=== PATIENT | male | born 1985 | race Caucasian/White ===

== ENCOUNTER 2016-08-07 08:15 | Emergency (ER) | payer SELFPAY ==
[2016-08-07 08:22] VITALS: BP 139/89
[2016-08-07] MEDS ORDERED: Ibuprofen TAB* 400 MG PO ONE (08:34)
--- NOTE | 2016-08-07 08:47 | ED ---
Influenza-Like Illness - HPI Summary HPI Summary: Patient presents with a sore throat for five days that began with a fever that has now resolved, but his throat continues to hurt. He has a history of tonsilar abscesses, so he worries this might be happening again. He has pain with swallowing but no difficulty breathing. He has used Chloraseptic and ibuprofen with mild relief. He denies runny nose, AQUINO, cough or congestion. No N/ V/D. - History of Current Complaint Chief Complaint: EDGeneral Time Seen by Provider: 08/07/16 08:24 Hx Obtained From: Patient Onset/Duration: Gradual Onset Severity: Severe Associated Signs & Symptoms: Sore Throat Related Hx: Possible Flu/Infectious Exposure - Allergy/Home Medications Allergies/Adverse Reactions: Allergies Allergy/AdvReac Type Severity Reaction Status Date / Time No Known Allergies Allergy Verified 11/21/15 13:38 PMH/Surg Hx/FS Hx/Imm Hx Previously Healthy: Yes - Surgical History Surgery Procedure, Year, and Place: THROAT ABSCESS REMOVED Infectious Disease History: No Infectious Disease History: Denies: Traveled Outside the [place] in Last 30 Days - Family History Known Family History: Positive: Cardiac Disease - [place]: Father, grandfather, grandmother - Social History Occupation: Employed Full-time Lives: With Family Alcohol Use: Weekly Hx Substance Use: Yes Substance Use Type: Reports: Marijuana Substance Use Comment - Amount & Last Used: occasional Hx Tobacco Use: Yes Smoking Status (MU): Heavy Every Day Tobacco Smoker Amount Used/How Often: 1/2 ppd Cessation Counseling: Patient Advised to Stop Review of Systems Negative: Fever, Chills Positive: Sore Throat. Negative: Ear Ache, Nasal Discharge Negative: Cough Negative: Myalgia Negative: Headache All Other Systems Reviewed And Are Negative: Yes Physical Exam Triage Information Reviewed: Yes Vital Signs On Initial Exam: Initial Vitals Temp Pulse Resp BP Pulse Ox 98.9 F 95 20 139/89 98 08/07/16 08:20 08/07/16 08:20 08/07/16 08:20 08/07/16 08:20 08/07/16 08:20 Vital Signs Reviewed: Yes Appearance: Positive: Well-Appearing, Pain Distress, Obese Skin: Positive: Warm, Skin Color Reflects Adequate Perfusion, Dry, Soft Head/Face: Positive: Normal Head/Face Inspection Eyes: Positive: EOMI, ODALIS, Conjunctiva Clear ENT: Positive: Pharyngeal erythema, TMs normal, Tonsillar swelling. Negative: Nasal congestion, Tonsillar exudate Neck: Positive: Supple, Tenderness @ - bilateral cervical, Enlarged Nodes @ - bilateral cervical Respiratory/Lung Sounds: Positive: Clear to Auscultation, Breath Sounds Present Cardiovascular: Positive: RRR Neurological: Positive: Alert, Oriented to Person Place, Time, Normal Gait Psychiatric: Positive: Affect/Mood Appropriate AVPU Assessment: Alert Diagnostics - Vital Signs Vital Signs Temp Pulse Resp BP Pulse Ox 08/07/16 08:20 98.9 F 95 20 139/89 98 - Laboratory Lab Statement: Any lab studies that have been ordered have been reviewed, and results considered in the medical decision making process. Flu Symptom Course/Dx - Diagnoses Differential Diagnosis/HQI/PQRI: Positive: Bronchitis, Influenza, Pneumonia, Upper Respiratory Infection Provider Diagnoses: Strep throat Discharge - Discharge Plan Condition: Stable Disposition: HOME Prescriptions: Magic Mouth Was-JESSE/MAAL/LIDO* 5 ml SWISH SPIT QID #120 ml Penicillin VK TAB* [Penicillin VK 250 mg Tab*] 500 mg PO TID #59 tab Patient Education Materials: Strep Throat (ED) Referrals: [facility] [place] [facility]IAN REFERRAL [Outside] Additional Instructions: Please call the number provided to establish care with a regular provider for follow-up care. Return to the emergency department if symptoms worsen.
[2016-08-07] MEDS ORDERED: Penicillin VK TAB* 250 MG PO ONE (09:58)
== END 2016-08-07 10:15 | disposition home or self-care (01) ==
LOC: ED 08:15
DX: J02.0 Streptococcal pharyngitis (principal); J02.9 Acute pharyngitis, unspecified; R50.9 Fever, unspecified; F17.210 Nicotine dependence, cigarettes, uncomplicated
CPT/HCPCS: 87651; 99282; A9270-GY

== ENCOUNTER 2017-10-06 08:31 | Emergency (ER) | payer SELFPAY ==
[2017-10-06 08:43] VITALS: BP 147/102
--- NOTE | 2017-10-06 08:59 | UC ---
Throat Pain/Nasal Eric HPI - HPI Summary HPI Summary: 32 yo male with sore throat x 1 day both sons have strep no n/v/d - History of Current Complaint Chief Complaint: UCGeneralIllness Stated Complaint: FEVER SORE THROAT Time Seen by Provider: 10/06/17 08:39 Hx Obtained From: Patient Onset/Duration: Gradual Onset Severity: Moderate Pain Intensity: 7 Pain Scale Used: 0-10 Numeric - Epiglottits Risk Factors Epiglottis Risk Factors: Negative - Allergies/Home Medications Allergies/Adverse Reactions: Allergies Allergy/AdvReac Type Severity Reaction Status Date / Time No Known Allergies Allergy Verified 10/06/17 08:43 Home Medications: Home Medications Ibuprofen 2 tab PO BID PRN 10/06/17 [History Confirmed 10/06/17] PMH/Surg Hx/FS Hx/Imm Hx Previously Healthy: Yes - Surgical History Surgical History: Yes Surgery Procedure, Year, and Place: THROAT ABSCESS REMOVED - Family History Known Family History: Positive: Cardiac Disease - [place]: Father, grandfather, grandmother, Hypertension - Social History Alcohol Use: Weekly Substance Use Type: None Substance Use Comment - Amount & Last Used: occasional Smoking Status (MU): Heavy Every Day Tobacco Smoker Amount Used/How Often: 1/2 ppd Household Exposure Type: Cigarettes Cessation Counseling: Patient Advised to Stop - Immunization History Most Recent Tetanus Shot: unknown Review of Systems Constitutional: Negative Skin: Negative Eyes: Negative ENT: Sore Throat Respiratory: Negative Cardiovascular: Negative Gastrointestinal: Negative Genitourinary: Negative Motor: Negative Neurovascular: Negative Musculoskeletal: Negative Neurological: Negative Psychological: Negative Is Patient Immunocompromised?: No All Other Systems Reviewed And Are Negative: Yes Physical Exam Triage Information Reviewed: Yes Appearance: Well-Appearing, No Pain Distress, Well-Nourished Vital Signs: Initial Vital Signs Temp 97.6 F 10/06/17 08:40 Pulse 86 10/06/17 08:40 Resp 20 10/06/17 08:40 BP 147/102 10/06/17 08:40 Pulse Ox 98 10/06/17 08:40 Vital Signs Reviewed: Yes ENT: Positive: Hearing grossly normal, Tonsillar swelling, Tonsillar exudate, Uvula midline. Negative: Nasal congestion, Nasal drainage Neck: Positive: Supple, Nontender, Enlarged Nodes @ Respiratory: Positive: Lungs clear, Normal breath sounds, No respiratory distress, No accessory muscle use Cardiovascular: Positive: RRR, No Murmur Musculoskeletal: Positive: ROM Intact, No Edema Neurological: Positive: Alert Psychological Exam: Normal Skin Exam: Normal Diagnostics - Laboratory Diagnostic Studies Completed/Ordered: strep (+) Throat Pain/Nasal Course/Dx - Differential Dx/Diagnosis Provider Diagnoses: strep throat. elveted BP without dx of HTN. tobacco use/ abuse Discharge - Sign-Out/Discharge Documenting (check all that apply): Discharge - Discharge Plan Condition: Stable Disposition: HOME Patient Education Materials: Strep Throat (ED) Forms: *Work Release Referrals: [facility] [place] [facility] REFERR[facility] [Outside] - As Soon As Possible Additional Instructions: recheck in 3-4 days if not better you need to find a primary care provider you BP here was high and needs following you need to stop smoking you may need a sleep study to check for obstructive sleep apnea - Billing Disposition and Condition Condition: STABLE Disposition: HOME
== END 2017-10-06 09:13 | disposition home or self-care (01) ==
LOC: UCEAST 08:31
DX: J02.0 Streptococcal pharyngitis (principal); R03.0 Elevated blood-pressure reading, without diagnosis of hypertension; F17.210 Nicotine dependence, cigarettes, uncomplicated
CPT/HCPCS: 87651; 99212; G0463

== ENCOUNTER 2018-08-24 10:31 | Emergency (ER) | payer OTHER ==
[2018-08-24 11:17] LABS: Influenza A Molecular NEGATIVE (Negative); Influenza B Molecular NEGATIVE (Negative)
[2018-08-24] MEDS ORDERED: Acetaminophen TAB* 325 MG PO ONE (13:35)
--- NOTE | 2018-08-24 13:37 | ED ---
Complex/Multi-Sys Presentation - HPI Summary HPI Summary: Patient is a 33 y/o M presenting to ED with complaints of fever and cough onsetting last night. Sx have been constant throughout the night and have progressively worsened. Patient also endorses abdominal pain and N/V/D as well but denies dysuria. Abdominal pain is described as cramping. He reports experiencing SOB with sore throat and congestion but denies chest pain and rhinorrhea. He notes has a slight cough but otherwise no sick contacts. Patient took Robitussin at 0830 this morning. On triage, pain is rated 7/10, nothing is noted to aggravate/alleviate Sx. Home medications and allergies are reviewed. - History Of Current Complaint Chief Complaint: EDFluSymptoms Time Seen by Provider: 08/24/18 13:14 Hx Obtained From: Patient Onset/Duration: Lasting Days - onset last night, Still Present, Worse Since Timing: Constant, Days - onset last night Severity Currently: Severe - 7/10 Location: Pain At: - abdominal pain Aggravating Factor(s): nothing Alleviating Factor(s): nothing Associated Signs And Symptoms: Positive: SOB, Cough, Nausea, Vomiting, Diarrhea , Abdominal Pain, Fever, Other - POSITIVE - CONGESTION; NEGATIVE - RHINORRHEA. Negative: Chest Pain, Dysuria - Allergies/Home Medications Allergies/Adverse Reactions: Allergies Allergy/AdvReac Type Severity Reaction Status Date / Time No Known Allergies Allergy Verified 10/06/17 08:43 Home Medications: Home Medications Ibuprofen TAB* [Advil TAB*] 400 mg PO BID PRN 08/24/18 [History Confirmed ] PMH/Surg Hx/FS Hx/Imm Hx Sensory History: Denies: Hx Legally Blind, Hx Deafness Opthamlomology History: Denies: Hx Legally Blind EENT History: Denies: Hx Deafness - Surgical History Surgery Procedure, Year, and Place: THROAT ABSCESS REMOVED Infectious Disease History: No Infectious Disease History: Denies: Traveled Outside the [place] in Last 30 Days - Family History Known Family History: Positive: Cardiac Disease - [place]: Father, grandfather, grandmother, Hypertension - Social History Alcohol Use: Weekly Alcohol Amount: 20-30beers Hx Substance Use: Yes Substance Use Type: Reports: Marijuana Substance Use Comment - Amount & Last Used: occasional Hx Tobacco Use: Yes Smoking Status (MU): Heavy Every Day Tobacco Smoker Amount Used/How Often: 1/2 ppd Review of Systems Positive: Fever ENT: Other - POSITIVE - CONGESTION Positive: Sore Throat. Negative: Nasal Discharge Negative: Chest Pain Positive: Shortness Of Breath, Cough Positive: Abdominal Pain, Vomiting, Diarrhea, Nausea Negative: dysuria All Other Systems Reviewed And Are Negative: Yes Physical Exam - Summary Physical Exam Summary: Constitutional: Well-developed, Well-nourished, Alert. Appears uncomfortable. Skin: Warm, Dry HENT: Normocephalic; Atraumatic Eyes: Conjunctiva normal Neck: Musculoskeletal ROM normal neck. (-) JVD, (-) Stridor, (-) Tracheal deviation Cardio: tachycardic, rate normal, Heart sounds normal; Intact distal pulses; The pedal pulses are 2+ and symmetric. Radial pulses are 2+ and symmetric. (-) Murmur Pulmonary/Chest wall: Effort normal. (-) Respiratory distress, (-) Wheezes, (-) Rales Abd: Soft, (-) tenderness, (-) Distension, (-) Guarding, (-) Rebound Musculoskeletal: (-) Edema Lymph: (-) Cervical adenopathy Neuro: Alert, Oriented x3 Psych: Mood and affect Normal Triage Information Reviewed: Yes Vital Signs On Initial Exam: Initial Vitals Temp Pulse Resp BP Pulse Ox 97.2 F 122 24 137/90 95 08/24/18 10:43 08/24/18 10:43 08/24/18 10:43 08/24/18 10:43 08/24/18 10:43 Vital Signs Reviewed: Yes Diagnostics - Vital Signs Vital Signs Temp Pulse Resp BP Pulse Ox 08/24/18 13:15 19 08/24/18 13:10 113 127/108 96 08/24/18 12:37 100.8 F 123 22 148/82 95 08/24/18 10:43 97.2 F 122 24 137/90 95 - Laboratory Lab Results: Lab Results 08/24/18 08/24/18 Range/Units 11:05 11:05 Influenza A (Rapid) Negative (Negative) Influenza B (Rapid) Negative (Negative) Group A Strep Rapid Negative (Negative) Result Diagrams: 08/24/18 14:17 08/24/18 14:17 Lab Statement: Any lab studies that have been ordered have been reviewed, and results considered in the medical decision making process. - Radiology CXR Radiology Interpretation Completed By: Radiologist Summary of Radiographic Findings: IMPRESSION: NO ACTIVE CARDIOPULMONARY DISEASE. THIS REPORT WAS REVIEWED BY DR. CARLSON. - EKG 1350 Cardiac Rate: Tachycardia - rate of 111 BPM EKG Rhythm: Sinus Tachycardia Summary of EKG Findings: EKG showed sinus tachycardia with rate of 111 BPM, normal UT, normal QRS, normal QTc, incomplete RBBB, normal ST, normal T wave, non-specific EKG. Re-Evaluation - Re-Evaluation First Eval Re-Evaluation Time: 18:02 Change: Improved Comment: Patient reports that he is feeling better. He will be discharged to home. He is agreeable with this. Complex Multi-Symp Course/Dx Course Of Treatment: Patient is a 33 y/o M presenting to ED with complaints of fever and cough onsetting last night. Sx have been constant throughout the night and have progressively worsened. Patient also endorses abdominal pain and N/V/D as well but denies dysuria. Abdominal pain is described as cramping. He reports experiencing SOB with sore throat and congestion but denies chest pain and rhinorrhea. He notes has a slight cough but otherwise no sick contacts. Patient took Robitussin at 0830 this morning. On physical exam, patient is noted to appear uncomfortable, tachycardia is noted. EKG showed sinus tachycardia with rate of 111 BPM, normal UT, normal QRS, normal QTc, incomplete RBBB, normal ST, normal T wave, non-specific EKG. CXR IMPRESSION: NO ACTIVE CARDIOPULMONARY DISEASE. Influenza A, B, group A strep rapid is negative. UA showed trace ketones, 1+ blood, present hyaline casts. Labs showed WBC 6.2, Hgb 13.9, Hct 39, absolute lymphs 0.5, INR 1.07, sodium 130, carbon dioxide 21, lactic acid 0.7, second lactic acid 0.5, calcium 8.1, AST 75, ALT 121, trop 0, total protein 6.3. During ED course, patient received fluids, motrin 600 mg PO ONCE, flexeril 10 mg PO ONCE, and Tylenol 650 mg PO ONCE. Patient reports that he is feeling better. He will be discharged to home and follow up with PCP. He is agreeable with this. - Diagnoses Provider Diagnoses: Viral syndrome Discharge - Sign-Out/Discharge Documenting (check all that apply): Patient Departure - discharge Patient Received Moderate/Deep Sedation with Procedure: No - Discharge Plan Condition: Good Disposition: HOME Patient Education Materials: Viral Syndrome (ED) Print Language: POLISH Forms: *Work Release [facility]errals: [facility] [Outside] Additional Instructions: Return to ED for any new or worsening symptoms. - Billing Disposition and Condition Condition: GOOD Disposition: Home - Attestation Statements Document Initiated by Scribe: Yes Documenting Scribe: JAIME DURHAM Provider For Whom Hannah is Documenting (Include Credential): EMELIA BECK MD Scribe Attestation: I, JAIME DURHAM, scribed for EMELIA CARLSON MD on 08/24/18 at 2200. Scribe Documentation Reviewed: Yes Provider Attestation: The documentation as recorded by the scribeJAIME accurately reflects the service I personally performed and the decisions made by me, EMELIA CARLSON MD Status of Scribe Document: Viewed
[2018-08-24] MEDS ORDERED: NS 0.9% 1000 ML** 1,000 ML IV.FLUID IV ONE (13:41)
[2018-08-24 14:30] LABS: ABS Basophils 0 10^3/ul (0-0.2); ABS Eosinophils 0 10^3/ul (0-0.6); ABS Lymphocytes 0.5 10^3/ul (1.0-4.8); ABS Monocytes 0.8 10^3/ul (0-0.8); ABS Neutrophils 4.8 10^3/ul (1.5-7.7); ABS Nucleated RBC 0 10^3/ul; Eosinophil % 0.2 %; Hematocrit 39 % (42-52); Hemoglobin 13.9 g/dl (14.0-18.0); Lymphocyte % 8.3 %; Mean Corpuscular HGB Conc 35 g/dl (31-36); Mean Corpuscular Hemoglobin 31 pg (27-31); Mean Corpuscular Volume 88 fL (80-94); Mean Platelet Volume 8.3 fL (7.4-10.4); Nucleated Red Blood Cells % 0.1; Platelet Count 177 10^3/ul (150-450); Red Blood Count 4.47 10^6/ul (4.00-5.40); Red Cell Distribution Width 13 % (10.5-15); White Blood Count 6.2 10^3/ul (3.5-10.8)
[2018-08-24] MEDS ORDERED: Cyclobenzaprine TAB* 10 MG PO ONE (14:32)
[2018-08-24 14:39] LABS: Activated Partial Thrombo Time 30.7 seconds (26.0-36.3); INR 1.07 (0.77-1.02)
[2018-08-24 14:48] LABS: Urine Appearance Cloudy; Urine Bacteria Absent (Absent); Urine Bilirubin Negative (Negative); Urine Blood 1+ (Negative); Urine Color Yellow; Urine Glucose Negative (Negative); Urine Ketones Trace (Negative); Urine Nitrite Negative (Negative); Urine Protein Negative (Negative); Urine Red Blood Cell Trace(0-2/hpf) (Absent); Urine Specific Gravity 1.021 (1.010-1.030); Urine Urobilinogen Negative (Negative); Urine White Blood Cell Trace(0-5/hpf) (Absent)
[2018-08-24 14:49] LABS: Albumin 3.9 g/dL (3.2-5.2); Albumin/Globulin Ratio 1.6 (1-3); BUN/Creatinine Ratio 11.9 (8-20); Calcium 8.1 mg/dL (8.6-10.3); EGFR African American 103.6 (>60); EGFR Non-African American 85.6 (>60); Globulin 2.4 g/dL (2-4); Potassium 3.8 mmol/L (3.5-5.0); Total Bilirubin 0.4 mg/dL (0.2-1.0); Total Protein 6.3 g/dL (6.4-8.9)
[2018-08-24] MEDS ORDERED: Ibuprofen TAB* 600 MG PO ONE (17:27)
[2018-08-24 18:35] VITALS: BP 125/71
== END 2018-08-24 18:33 | disposition home or self-care (01) ==
LOC: ED 10:31
DX: B34.9 Viral infection, unspecified (principal); R50.9 Fever, unspecified; R11.2 Nausea with vomiting, unspecified; R19.7 Diarrhea, unspecified; R10.9 Unspecified abdominal pain; J02.9 Acute pharyngitis, unspecified; F17.210 Nicotine dependence, cigarettes, uncomplicated
CPT/HCPCS: 36415; 71045; 80053; 81003; 81015; 83605; 84484; 85025; 85610; 85730; 87040; 87086; 87651; 93005; 96360; 99283; A9270-GY

== ENCOUNTER 2018-08-28 13:46 | Emergency (ER) | payer OTHER ==
[2018-08-28] MEDS ORDERED: Al Hydrox/Mg Hydrox/Simet LIQ* 30 ML UDC PO ONE (14:02)
[2018-08-28] MEDS ORDERED: Ondansetron ODT TAB* 4 MG PO ONE (14:02)
[2018-08-28] MEDS ORDERED: Ketorolac INJ* 30 MG/ML 1 ML VIAL IV PUSH ONE (14:02)
[2018-08-28] MEDS ORDERED: NS 0.9% 1000 ML** 1,000 ML IV ONE (14:02)
--- NOTE | 2018-08-28 14:08 | ED ---
Abdominal Pain/Male - HPI Summary HPI Summary: Patient is a 33-year-old male with a history of intermittent abdominal cramping over 2 years presenting to the ED for the second time in 4 days with severe back pain to the mid scapula, RUQ pain which then radiated to the LLQ. He states the pain was 10/10, and he became extremely diaphoretic. He was seen in the ED 2 days ago for his cough and fever and was diagnosed with viral syndrome. He returns today with the worst abdominal cramping of his life patient. He denies any nausea, vomiting, diarrhea, constipation. Last bowel movement yesterday morning. He has not eaten anything today. He denies a history of abdominal surgeries. EMS was called. EMS states on arrival he was extremely diaphoretic and short of breath. They placed him on a nonrebreather mask. He was complaining of severe mid scapular pain which was nonradiating. He was also complaining about RUQ pain at that time. - History of Current Complaint Stated Complaint: CRAMPING PER EMS Time Seen by Provider: 08/28/18 13:53 Hx Obtained From: Patient Onset/Duration: Sudden Onset Timing: Constant Severity Initially: Severe Severity Currently: None Pain Scale Used: 0-10 Numeric Location: Diffuse Radiates: No Character: Sharp, Cramping Aggravating Factor(s): Nothing Alleviating Factor(s): Nothing Associated Signs And Symptoms: Positive: Negative - Risk Factors Testicular Torsion: Negative Cardiac Risk Factors: Negative - Allergies/Home Medications Allergies/Adverse Reactions: Allergies Allergy/AdvReac Type Severity Reaction Status Date / Time No Known Allergies Allergy Verified 10/06/17 08:43 PMH/Surg Hx/FS Hx/Imm Hx Previously Healthy: Yes Sensory History: Denies: Hx Legally Blind, Hx Deafness Opthamlomology History: Denies: Hx Legally Blind - Surgical History Surgery Procedure, Year, and Place: THROAT ABSCESS REMOVED - Immunization History Hx Pertussis Vaccination: No Immunizations Up to Date: Yes - Family History Known Family History: Positive: Cardiac Disease - [place]: Father, grandfather, grandmother, Hypertension - Social History Occupation: Employed Full-time Lives: With Family Alcohol Use: Weekly Alcohol Amount: 20-30beers Hx Substance Use: Yes Substance Use Type: Reports: Marijuana Substance Use Comment - Amount & Last Used: occasional Hx Tobacco Use: Yes Smoking Status (MU): Heavy Every Day Tobacco Smoker Amount Used/How Often: 1/2 ppd Review of Systems Constitutional: Negative Negative: Fever, Chills, Fatigue, Skin Diaphoresis Negative: Palpitations, Chest Pain Positive: Shortness Of Breath. Negative: Cough Positive: Abdominal Pain. Negative: Vomiting, Diarrhea, Nausea Genitourinary: Negative Positive: no symptoms reported, see HPI Negative: Arthralgia, Myalgia Skin: Negative All Other Systems Reviewed And Are Negative: Yes Physical Exam Triage Information Reviewed: Yes Vital Signs Reviewed: Yes Appearance: Positive: Well-Appearing, Well-Nourished Skin: Positive: Skin Color Reflects Adequate Perfusion Head/Face: Positive: Normal Head/Face Inspection Eyes: Positive: EOMI, Conjunctiva Clear Neck: Positive: Supple, Nontender, No Lymphadenopathy Respiratory/Lung Sounds: Positive: Clear to Auscultation, Breath Sounds Present Cardiovascular: Positive: RRR, Pulses are Symmetrical in both Upper and Lower Extremities. Negative: Tachycardia, Leg Edema Left, Leg Edema Right Abdomen Description: Positive: Nontender, No Organomegaly, Soft. Negative: CVA Tenderness (R), CVA Tenderness (L), Distended, Guarding, McBurney's Point Tenderness, Splenomegaly Bowel Sounds: Positive: Present Musculoskeletal: Positive: Normal, Strength/ROM Intact Neurological: Positive: Speech Normal Psychiatric: Positive: Normal, Affect/Mood Appropriate AVPU Assessment: Alert Diagnostics - Laboratory Result Diagrams: 08/28/18 14:09 08/28/18 14:09 Lab Statement: Any lab studies that have been ordered have been reviewed, and results considered in the medical decision making process. Abdominal Pain Male Course/Dx - Course Course Of Treatment: During this course of treatment, the patients evaluated for intermittent abdominal pain which was previously to the RUQ and radiated to the LLQ. On arrival, patient is diaphoretic, however vital signs are stable. He is on a nonrebreather and this was taken off. He remains at 99% on room air. Heart rate of 84, BP 115/83 and respirations are 17. Patient states his abdominal symptoms have resolved. He denies any CP, however endorses SOB only with abdominal pain. He states he has been dealing with this for months, however this was the worst symptom. He does not have anything to eat prior to arrival. Labs obtained which show a elevated CRP, however a normal white blood cell count. His AST and ALT are slightly elevated, but total bilirubin is WNL. Gallbladder ultrasound obtained which is negative for any acute findings. Chest x-ray obtained which shows no acute active cardiopulmonary disease. Troponin 0.00. EKG shows normal sinus rhythm. Patient is stable and denies any symptoms at this time. Due to his intermittent abdominal symptoms over the course of several months, he will be discharged with a follow-up to a GI specialist. He offers no complaints at this time. - Diagnoses Differential Diagnosis/HQI/PQRI: Appendicitis, Constipation, Ureteral Stone, Urinary Tract Infection Provider Diagnoses: Abdominal pain Discharge - Sign-Out/Discharge Documenting (check all that apply): Patient Departure Patient Received Moderate/Deep Sedation with Procedure: No - Discharge Plan Condition: Stable Disposition: HOME Patient Education Materials: Acute Abdominal Pain (ED) Referrals: Polo Smith MD [Medical Doctor] - No Primary Care Phys,NOPCP [Primary Care Provider] - Additional Instructions: Please follow-up with Dr. Smith's office Maalox over the counter for breakthrough pain - Billing Disposition and Condition Condition: STABLE Disposition: Home
[2018-08-28 14:26] LABS: ABS Basophils 0 10^3/ul (0-0.2); ABS Eosinophils 0 10^3/ul (0-0.6); ABS Lymphocytes 1.2 10^3/ul (1.0-4.8); ABS Monocytes 0.6 10^3/ul (0-0.8); ABS Neutrophils 3.7 10^3/ul (1.5-7.7); ABS Nucleated RBC 0 10^3/ul; Eosinophil % 0.6 %; Hematocrit 43 % (36-46); Hemoglobin 15.5 g/dL (14.0-18.0); Lymphocyte % 21.7 %; Mean Corpuscular HGB Conc 36 g/dL (31-36); Mean Corpuscular Hemoglobin 31 pg (27-31); Mean Corpuscular Volume 86 fL (80-94); Mean Platelet Volume 8.4 fL (7.4-10.4); Nucleated Red Blood Cells % 0.4; Platelet Count 185 10^3/uL (150-450); Red Blood Count 5.06 10^6 /uL (4.18-5.48); Red Cell Distribution Width 13 % (10.5-15); White Blood Count 5.6 10^3/uL (3.5-10.8)
[2018-08-28 14:42] LABS: Albumin/Globulin Ratio 1.3 (1-3); BUN/Creatinine Ratio 12.4 (8-20); C Reactive Protein 50.97 mg/L (<8.01); Calcium 8.6 mg/dL (8.6-10.3); EGFR African American 119.9 (>60); EGFR Non-African American 99.1 (>60); Potassium 3.6 mmol/L (3.5-5.0); Total Bilirubin 0.5 mg/dL (0.2-1.0)
[2018-08-28 15:34] VITALS: BP 121/71
== END 2018-08-28 15:34 | disposition home or self-care (01) ==
LOC: ED 13:46
DX: R10.11 Right upper quadrant pain (principal); R10.32 Left lower quadrant pain; R06.02 Shortness of breath; R61 Generalized hyperhidrosis; K76.0 Fatty (change of) liver, not elsewhere classified; Z82.49 Family history of ischemic heart disease and other diseases of the circulatory system; F17.210 Nicotine dependence, cigarettes, uncomplicated
CPT/HCPCS: 36415; 71046; 76705; 80053; 83605; 83690; 83735; 84484; 85025; 86140; 93005; 99283